=== PATIENT | female | born 1980 | race Caucasian/White ===

== ENCOUNTER 2024-03-08 09:05 | Inpatient (IN) | payer OTHER ==
[2024-03-08 09:36] VITALS: BMI 33.5
[2024-03-08] MEDS ORDERED: ACETAMINOPHEN 325 MG TABLET (FP) PO PRN (09:55)
[2024-03-08] MEDS ORDERED: NALOXONE (NARCAN) HCL 4 MG/0.1 ML SPRAY NS PRN (09:55)
[2024-03-08] MEDS ORDERED: BENZONATATE 200 MG CAPSULE PO PRN (09:55)
[2024-03-08] MEDS ORDERED: BISMUTH SUBSALICYLATE 524 MG/30 ML PO PRN (09:55)
[2024-03-08] MEDS ORDERED: guaiFENesin 600 MG TABLET.ER (FP) PO PRN (09:55)
[2024-03-08] MEDS ORDERED: LOPERAMIDE HCL 2 MG CAPSULE PO PRN (09:55)
[2024-03-08] MEDS ORDERED: IBUPROFEN 400 MG TABLET (FP) PO PRN (09:55)
[2024-03-08] MEDS ORDERED: POLYETHYLENE GLYCOL (HEALTHYLAX) 3350 17 GM PACKET PO PRN (09:55)
[2024-03-08] MEDS ORDERED: P-EPHED 60MG/TRIPROLIDI 2.5MG TABLET PO PRN (09:55)
[2024-03-08] MEDS ORDERED: MAGNESIUM HYDROX 2400MG/30ML ORAL SUSPENSION 30 ML CUP PO PRN (09:55)
[2024-03-08] MEDS ORDERED: BENZOCAINE/MENTHOL (CHLORASEPTIC ) LOZENGE MM PRN (09:55)
[2024-03-08] MEDS ORDERED: ONDANSETRON *ODT* 4 MG TABLET SL PRN (09:55)
[2024-03-08] MEDS ORDERED: NALOXONE HCL 0.4 MG/ML VIAL IM PRN (09:55)
[2024-03-08] MEDS ORDERED: DICYCLOMINE HCL 10 MG CAPSULE PO PRN (09:55)
[2024-03-08] MEDS ORDERED: NICOTINE POLACRILEX 2 MG LOZENGE BC PRN (09:55)
[2024-03-08] MEDS ORDERED: MAG HYDROX/AL HYDROX/SIMETH 30 ML UNIT-DOSE CUP PO PRN (09:55)
[2024-03-08] MEDS: PRENATAL VITAMINS W/ FOLIC ACID TABLET (FP) PO SCH (11:07)
[2024-03-08] MEDS: FERROUS SO4 325 MG TABLET (FP) PO SCH (12:51)
[2024-03-08] MEDS: METHOCARBAMOL 500 MG TABLET PO PRN (13:14)
[2024-03-08] MEDS: hydrOXYzine PAMOATE 25 MG CAPSULE (FP) PO PRN (13:14)
[2024-03-08] MEDS: IBUPROFEN 600 MG TABLET (FP) PO PRN (17:04)
[2024-03-08] MEDS: chlordiazePOXIDE HCL 25 MG CAPSULE PO SCH (17:04)
[2024-03-08] MEDS: MELATONIN 5 MG TABLETS PO SCH (22:04)
[2024-03-08] MEDS: THIAMINE 100 MG TABLET PO SCH (22:05)
[2024-03-09] MEDS: chlordiazePOXIDE HCL 25 MG CAPSULE PO PRN (03:53)
[2024-03-09] MEDS ORDERED: methaDONE HCL 40 MG DISPERSABLE TABLET PO SCH (06:00)
[2024-03-09] MEDS: LEVOTHYROXINE NA 50 MCG TABLET (FP) PO SCH (07:55)
[2024-03-09] MEDS ORDERED: LEVOTHYROXINE NA 25 MCG TABLET (FP) PO SCH (08:22)
[2024-03-09] MEDS: LEVOTHYROXINE NA 25 MCG TABLET (FP) PO SCH (09:56)
[2024-03-09] MEDS ORDERED: PATIENT'S OWN MEDICATION (NON-FORMULARY) (Lisinopril/Hydrochlorothiazide [Lisinopril-Hctz PO SCH (10:00)
[2024-03-09] MEDS: HYDROCHLOROTHIAZIDE 12.5 MG CAPSULE (FP) PO SCH (10:14)
[2024-03-09] MEDS: LISINOPRIL 10 MG TABLET PO SCH (10:14)
[2024-03-09] MEDS: FUROSEMIDE 40 MG TABLET (FP) PO SCH (10:14)
[2024-03-09] MEDS: PANTOPRAZOLE 20 MG TABLET PO SCH (10:14)
[2024-03-09] MEDS: POTASSIUM CHLORIDE ORAL LIQUID 20 MEQ/15 ML PO SCH (10:15)
[2024-03-09 11:58] LABS: HEMOGLOBIN 12.6 GM/dL (10.7-15.3); MCH 28.1 pg (25.7-33.7); MCHC 33.2 g/dl (32.0-36.0); MEAN CELL VOLUME 84.6 fl (80-96); MEAN PLT VOLUME 8.4 fl (7.5-11.1); PLATELET COUNT 238 10^3/uL (134-434); RDW 17.9 % (11.6-15.6); WHITE BLOOD COUNT 6.7 K/mm3 (4.0-10.0)
[2024-03-09 12:09] LABS: POTASSIUM 4.4 mmol/L (3.5-5.1)
[2024-03-09 12:17] LABS: ALBUMIN 3.8 g/dl (3.4-5.0); BLOOD UREA NITROGEN 14.4 mg/dL (7-18); CALCIUM 9.3 mg/dL (8.5-10.1)
[2024-03-09 12:19] LABS: BILIRUBIN,TOTAL 0.4 mg/dL (0.2-1)
[2024-03-09] MEDS: SUVOREXANT 10 MG TABLET PO PRN (22:16)
[2024-03-10] MEDS: chlordiazePOXIDE HCL 25 MG CAPSULE PO SCH (05:25)
[2024-03-10] MEDS: NICOTINE POLACRILEX 2 MG GUM BUC PRN (08:53)
[2024-03-11] MEDS: chlordiazePOXIDE HCL 10 MG CAPSULE PO SCH (05:20)
[2024-03-11] MEDS: chlordiazePOXIDE HCL 10 MG CAPSULE PO PRN (14:20)
[2024-03-12] MEDS: chlordiazePOXIDE HCL 10 MG CAPSULE PO SCH (05:40)
[2024-03-12] MEDS: SUVOREXANT 10 MG TABLET PO ONE (23:30)
[2024-03-13] MEDS: chlordiazePOXIDE HCL 10 MG CAPSULE PO ONE (05:33)
[2024-03-13 11:29] VITALS: BP 119/77; PULSE 76; RESP 18; TEMP 98.6
== END 2024-03-13 12:35 | disposition home or self-care (01) | DRG 773 ==
LOC: YASAS 09:05 → UNDOADMIN 10:57 → Y6N 10:57
PROVIDERS: ADMIT Allergy & Immunology; ATTEND Surgery
PROC: HZ2ZZZZ Detoxification Services for Substance Abuse Treatment (ICD-10-PCS; principal; 2024-03-08)
DX: F10.230 Alcohol dependence with withdrawal, uncomplicated (principal); F11.20 Opioid dependence, uncomplicated; F17.210 Nicotine dependence, cigarettes, uncomplicated; F41.8 Other specified anxiety disorders; F43.10 Post-traumatic stress disorder, unspecified; E03.9 Hypothyroidism, unspecified; I10 Essential (primary) hypertension; K21.9 Gastro-esophageal reflux disease without esophagitis; Z86.2 Personal history of diseases of the blood and blood-forming organs and certain disorders involving the immune mechanism; Z62.810 Personal history of physical and sexual abuse in childhood; Z63.8 Other specified problems related to primary support group
CPT/HCPCS: 36415; 80053; 80305; 80307; 81025; 85027; 86780; 93005; 93010